=== PATIENT | female | born 1995 | race African-American/Black ===

== ENCOUNTER 2019-03-24 19:09 | Emergency (ER) | payer MEDICAID ==
[~2019-03-24] VITALS: Ht 149.9 cm; Wt 49.9 kg
[2019-03-24] MEDS ORDERED: ABILIFY10 MG ORAL (19:12)
[2019-03-24 19:20] VITALS: BP 125/80
--- NOTE | 2019-03-24 19:20 | NUR ---
ED Nurse Note: Patient was brought in to ER by RA from [facility], due to abdominal pain. Per patient she snorted meth today, and after that her abdominal pain was 7/10. AAO x4, patient has tachycardia HR is 115, other VSS at this time, skin is dry, intact, warm to touch. Patient denyes any pain right now. Will continue to monitor.
[2019-03-24] MEDS ORDERED: DiphenhydrAMINE 50mg/ml Inj IVP ONE (19:30)
[2019-03-24] MEDS ORDERED: Sodium Chloride 550 ML IV SCH (19:30)
[2019-03-24] MEDS ORDERED: Metoclopramide 10mg/2ml Inj IVP ONE (19:30)
--- NOTE | 2019-03-24 19:34 | Emergency Room Report ---
History of Present Illness General Chief Complaint: Abdominal Pain Source: Patient Present Illness HPI Patient presents with right-sided flank pain. She says it is her fault because she was doing methamphetamine today. At that time the pain began she felt that it was 8-9/10 right flank not radiating. Right now it's down to a 5 or 4/10. It's improving. She hasn't any fevers or chills. There's no cough, shortness of breath chest pain vomiting diarrhea. She's had pain like this in the past. Usually is not in her flank. She denies dysuria or hematuria. She's not sure when her last period was. The patient has cerebral palsy and is status post ventricular peritoneal shunt. She denies any headache at this time or increased weakness. Allergies: Coded Allergies: MORPHINE (Verified Allergy, Unknown, 03/24/19) Patient History Past Medical History: see triage record Past Surgical History: other - Ventriculoperitoneal shunt, post gastrostomy tube and removal Social History: Reports: smoking, drug use Social History Narrative [facility]hab [id number] Last Menstrual Period: 02/20/19 Now: No Reviewed Nursing Documentation: PMH: Agreed; PSxH: Agreed Nursing Documentation-PMH Past Medical History: No History, Except For Hx Asthma: Yes Review of Systems All Other Systems: negative except mentioned in HPI Physical Exam Vital Signs Date Time Temp Pulse Resp B/P (MAP) Pulse Ox O2 Delivery O2 Flow Rate FiO2 03/24/19 19:09 98.4 110 18 100 Room Air Sp02 EP Interpretation: reviewed, normal General Appearance: no apparent distress, alert, GCS 15, non-toxic, other - Short stature Head: normocephalic, atraumatic, 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 - 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 Eyes: bilateral eye PERRL, bilateral eye EOMI, bilateral eye conjunctivae pale ENT: moist mucus membranes Neck: full range of motion, supple Respiratory: lungs clear, normal breath sounds Cardiovascular #1: regular rate, rhythm Cardiovascular #2: 2+ radial (R) Gastrointestinal: normal inspection, normal bowel sounds, non tender, soft, no mass, non-distended, other - Surgical scars Genitourinary: no CVA tenderness - But reported pain right flank Musculoskeletal: back normal - Right flank pain, decreased range of motion - All extremities with atrophy Neurologic: alert, oriented x3, sensory intact, motor weakness - Lower extremities Psychiatric: mood/affect normal Skin: normal inspection, warm/dry Medical Decision Making Diagnostic Impression: Primary Impression: Flank pain Additional Impressions: Methamphetamine abuse Cerebral palsy Qualified Codes: G80.9 - Cerebral palsy, unspecified Status post ventriculo-peritoneal shunt placement ER Course Patient with cerebral palsy presents with right flank pain. Differential includes pyelonephritis, renal stone, dehydration, constipation, diverticulitis amongst others. Due to the position of the pain gallbladder disease is less likely. Patient will be evaluated with chest x-ray, abdominal film and labs. The patient will receive some IV hydration as she appears dehydrated and also Reglan, Benadryl and Pepcid. Patient admits to methamphetamine use and she denied discussed needing to go to methamphetamine anonymous meeting. Labs unremarkable. Patient refused x-rays. Patient states she feels better and wants to go out and smoke and go back to her rehab facility. I discussed the risk of missing serious abdominal or chest pathology. She understands this and still insists on signing out AGAINST MEDICAL ADVICE. Patient is improved. Laboratory Tests Test 03/24/19 19:30 White Blood Count 7.2 K/UL (4.8-10.8) Red Blood Count 4.76 M/UL (4.20-5.40) Hemoglobin 11.5 G/DL (12.0-16.0) L Hematocrit 36.3 % (37.0-47.0) L Mean Corpuscular Volume 76 FL (80-99) L Mean Corpuscular Hemoglobin 24.3 PG (27.0-31.0) L Mean Corpuscular Hemoglobin Concent 31.8 G/DL (32.0-36.0) L Red Cell Distribution Width 16.7 % (11.6-14.8) H Platelet Count 251 K/UL (150-450) Mean Platelet Volume 7.7 FL (6.5-10.1) Neutrophils (%) (Auto) 62.0 % (45.0-75.0) Lymphocytes (%) (Auto) 28.8 % (20.0-45.0) Monocytes (%) (Auto) 7.3 % (1.0-10.0) Eosinophils (%) (Auto) 0.7 % (0.0-3.0) Basophils (%) (Auto) 1.2 % (0.0-2.0) Prothrombin Time 10.7 SEC (9.30-11.50) Prothrombin Time INR 1.0 (0.9-1.1) PTT 24 SEC (23-33) Urine Color Pale yellow Urine Appearance Clear Urine pH 6 (4.5-8.0) Urine Specific [place] 1.015 (1.005-1.035) Urine Protein Negative (NEGATIVE) Urine Glucose (UA) Negative (NEGATIVE) Urine Ketones Negative (NEGATIVE) Urine Blood Negative (NEGATIVE) Urine Nitrite Negative (NEGATIVE) Urine Bilirubin Negative (NEGATIVE) Urine Urobilinogen Normal MG/DL (0.0-1.0) Urine Leukocyte Esterase 1+ (NEGATIVE) H Urine RBC 0-2 /HPF (0 - 2) Urine WBC 2-4 /HPF (0 - 2) Urine Squamous Epithelial Cells Moderate /LPF (NONE/OCC) H Urine Amorphous Sediment Few /LPF (NONE) H Urine Bacteria Few /HPF (NONE) Urine HCG, Qualitative Negative (NEGATIVE) Sodium Level 141 MMOL/L (136-145) Potassium Level 4.1 MMOL/L (3.5-5.1) Chloride Level 107 MMOL/L (98-107) Carbon Dioxide Level 24 MMOL/L (21-32) Anion Gap 10 mmol/L (5-15) Blood Urea Nitrogen 9 mg/dL (7-18) Creatinine 0.5 MG/DL (0.55-1.30) L Estimate Glomerular Filtration Rate > 60 mL/min (>60) Glucose Level 95 MG/DL (74-106) Calcium Level 9.3 MG/DL (8.5-10.1) Total Bilirubin 0.4 MG/DL (0.2-1.0) Aspartate Amino Transferase (AST) 15 U/L (15-37) Alanine Aminotransferase (ALT) 25 U/L (12-78) Alkaline Phosphatase 60 U/L (46-116) Total Protein 8.0 G/DL (6.4-8.2) Albumin 3.7 G/DL (3.4-5.0) Globulin 4.3 g/dL Albumin/Globulin Ratio 0.9 (1.0-2.7) L Lipase 125 U/L (73-393) EKG Diagnostic Results Rate: tachycardiac Rhythm: NSR ST Segments: no acute changes Rhythm Strip Diag. Results EP Interpretation: yes Rhythm: no PVC's, no ectopy, other - ST Last Vital Signs Date Time Temp Pulse Resp B/P (MAP) Pulse Ox O2 Delivery O2 Flow Rate FiO2 03/24/19 21:25 98.4 114 18 125/80 100 Room Air Status: improved Disposition: AGAINST MEDICAL ADVICE Condition: Improved Diego Ralph MD March 24, 2019 19:33
[2019-03-24 20:12] LABS: ANION GAP 10 mmol/L (5-15); BASOPHILS % (AUTO) 1.2 % (0.0-2.0); BLOOD UREA NITROGEN 9 mg/dL (7-18); CALCIUM 9.3 MG/DL (8.5-10.1); CARBON DIOXIDE 24 MMOL/L (21-32); CHLORIDE 107 MMOL/L (98-107); CREATININE 0.5 MG/DL (0.55-1.30); EOSINOPHILS % (AUTO) 0.7 % (0.0-3.0); HEMATOCRIT 36.3 % (37.0-47.0); HEMOGLOBIN 11.5 G/DL (12.0-16.0); LYMPHOCYTES % (AUTO) 28.8 % (20.0-45.0); MEAN CORPUSCULAR VOLUME 76 FL (80-99); MONOCYTES % (AUTO) 7.3 % (1.0-10.0); PLATELET COUNT 251 K/UL (150-450); POTASSIUM 4.1 MMOL/L (3.5-5.1); RED BLOOD COUNT 4.76 M/UL (4.20-5.40); RED CELL DISTRIBUTION WIDTH 16.7 % (11.6-14.8); SODIUM 141 MMOL/L (136-145); WHITE BLOOD COUNT 7.2 K/UL (4.8-10.8)
[2019-03-24 20:16] LABS: ALANINE AMINOTRANSFERASE 25 U/L (12-78); ALBUMIN 3.7 G/DL (3.4-5.0); ALBUMIN/GLOBULIN RATIO 0.9 (1.0-2.7); ALKALINE PHOSPHATASE 60 U/L (46-116); ASPARTATE AMINO TRANSFERASE 15 U/L (15-37); BILIRUBIN,TOTAL 0.4 MG/DL (0.2-1.0)
[2019-03-24 20:18] LABS: APPEARANCE,URINE CLEAR; BILIRUBIN, URINE NEGATIVE (NEGATIVE); COLOR,URINE PALE YELLOW; GLUCOSE, URINE (UA) NEGATIVE (NEGATIVE); KETONES,URINE NEGATIVE (NEGATIVE); LEUKOCYTE ESTERASE ,URINE 1+ (NEGATIVE); NITRITE,URINE NEGATIVE (NEGATIVE); PH,URINE 6 (4.5-8.0); PROTEIN,URINE NEGATIVE (NEGATIVE); UROBILINOGEN,URINE NORMAL MG/DL (0.0-1.0)
--- NOTE | 2019-03-24 20:39 | NUR ---
ED Nurse Note: Patient is not cooperative, keep teling "I want to go home, let me smoke." Patient signed AMA. [facility] for transportation ETA 2100.
--- NOTE | 2019-03-24 21:00 | NUR ---
AMA: SEE AMA FORM.
--- NOTE | 2019-03-24 21:03 | NUR ---
ED Nurse Note: Patient signed AMA, DC papers given by Dr. Ralph.
--- NOTE | 2019-03-24 21:22 | NUR ---
ED Nurse Note: Report given to Jenn, coordinator at [facility].
[2019-03-24 21:25] VITALS: BP 125/80
--- NOTE | 2019-03-24 21:26 | NUR ---
ED Nurse Note: Patient was transfered back to [facility]. AAO x4, VSS at this time. All belongings were given to the patient.
== END 2019-03-24 21:28 | disposition left against medical advice (07) ==
LOC: EDBD 19:09 → EMR 19:35
DX: R10.9 Unspecified abdominal pain (principal); F15.10 Other stimulant abuse, uncomplicated; G80.9 Cerebral palsy, unspecified; Z88.6 Allergy status to analgesic agent; F17.200 Nicotine dependence, unspecified, uncomplicated; Z98.2 Presence of cerebrospinal fluid drainage device; R00.0 Tachycardia, unspecified
CPT/HCPCS: 36415; 80053; 81003; 81025; 83690; 85025; 85610; 85730; 93005; 96361; 96374; 96375; 99284; J1200; J2765; S0028

== ENCOUNTER 2019-07-16 13:58 | Emergency (ER) | payer MEDICAID ==
[~2019-07-16] VITALS: Ht 162.6 cm; Wt 54.4 kg
[~2019-07-16 13:58] MED LIST: ABILIFY10 MG ORAL
[2019-07-16] MEDS ORDERED: DEPAKOTE ER250 MG ORAL (14:02)
[2019-07-16 14:09] VITALS: BP 118/70
--- NOTE | 2019-07-16 14:09 | NUR ---
ED Nurse Note: Pt brought in by EMS from [facility] due to headache x 2 days. Denies fall or head injury. No vomiting. Pt has cerebral palsy and has a GREEN WARE CASTER shunt. AAO x4, non ambulatory with non labored breathing. Noted contracted left arm.
--- NOTE | 2019-07-16 14:32 | NUR ---
ED Nurse Note: Pt taken to CT.
--- NOTE | 2019-07-16 14:32 | Emergency Room Report ---
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 Patient denies any fall or injury. Reports that the pain is on the posterior and lateral right parietal lobe. Old scarring of the shunt placement is observed at the site of her pain. Patient denies dizziness, nausea vomiting, nosebleed, vertigo, motor and sensory deficits. Denies chest pain, shortness of breath, palpitation, abdominal pain. Has not taken medication for symptom relief. Patient reports that she gets her menstruations regularly and she is due to get one soon. Denies all other associated symptoms. Allergies: Coded Allergies: MORPHINE (Verified Allergy, Unknown, 03/24/19) PENICILLINS (Verified Allergy, Unknown, 07/16/19) Patient History Past Medical History: see triage record Past Surgical History: unable to obtain Pertinent Family History: none Now: No Immunizations: UTD Reviewed Nursing Documentation: PMH: Agreed; PSxH: Agreed Nursing Documentation-PMH Past Medical History: No History, Except For Hx Asthma: Yes Review of Systems All Other Systems: negative except mentioned in HPI Physical Exam Vital Signs Date Time Temp Pulse Resp B/P (MAP) Pulse Ox O2 Delivery O2 Flow Rate FiO2 07/16/19 13:59 97.9 78 14 100/66 (77) 96 Room Air Sp02 EP Interpretation: reviewed, normal General Appearance: no apparent distress, alert, GCS 15, non-toxic Head: normocephalic, atraumatic, other - Old scarring of shunt placement noted in the right parietal lobe Eyes: bilateral eye normal inspection, bilateral eye PERRL ENT: hearing grossly normal, normal pharynx, no angioedema, normal voice Neck: full range of motion, supple, supple/symm/no masses Respiratory: chest non-tender, lungs clear, normal breath sounds, no rhonchi, no wheezing, speaking full sentences Cardiovascular #1: regular rate, rhythm, no edema, no murmur, normal capillary refill Cardiovascular #2: 2+ carotid (R), 2+ carotid (L) Gastrointestinal: normal bowel sounds, non tender, soft, non-distended, no guarding, no rebound Genitourinary: no CVA tenderness Musculoskeletal: back normal, digits/nails normal, non-tender Neurologic: alert, oriented x3, responsive, motor strength/tone normal, sensory intact, speech normal Psychiatric: judgement/insight normal, memory normal, mood/affect normal, no suicidal/homicidal ideation Skin: no rash Lymphatic: no adenopathy Medical Decision Making PA Attestation All my diagnosis and treatment plans were reviewed ad discussed with my supervising physician Dr. 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 Patient denies any fall or injury. Reports that the pain is on the posterior and lateral right parietal lobe. Old scarring of the shunt placement is observed at the site of her pain. Patient denies dizziness, nausea vomiting, nosebleed, vertigo, motor and sensory deficits. Denies chest pain, shortness of breath, palpitation, abdominal pain. Has not taken medication for symptom relief. Patient reports that she gets her menstruations regularly and she is due to get one soon. Denies all other associated symptoms. Ddx considered but are not limited to: Headache secondary to shunt malfunction, cerebral hematoma, tension headache, migraine headache Vital signs: are WNL, pt. is afebrile H&PE are most consistent with: headache not related to shunt malfunction and no hydrocephalus ORDERS: Head CT scan noncontrast, shuntogram, CBC, CMP, valproic acid level, UA , tox screen, urine test, Tylenol ER intervention: Tylenol DISCHARGE: At this time pt. is stable for d/c to home. Will provide printed patient care instructions, and any necessary prescriptions. Care plan and follow up instructions have been discussed with the patient prior to discharge. Take medication as directed follow-up with your primary care provider and neurologist CT/MRI/US Diagnostic Results CT/MRI/US Diagnostic Results : Imaging Test Ordered: Head CT no contrast Impression Within normal limits no signs of acute injury, no hydrocephalus Last Vital Signs Date Time Temp Pulse Resp B/P (MAP) Pulse Ox O2 Delivery O2 Flow Rate FiO2 07/16/19 13:59 97.9 78 14 100/66 (77) 96 Room Air Disposition: HOME, SELF-CARE Condition: Stable Referrals: [facility]ERR[facility] (PCP) Patient Instructions: Tension Headache Additional Instructions: Take medication as directed follow-up with your primary care provider make an appointment with your neurologist Reggie Abbott Jul 16, 2019 14:32
--- NOTE | 2019-07-16 14:45 | NUR ---
ED Nurse Note: Pt came back from CT. VSS.
[2019-07-16 14:46] LABS: BASOPHILS % (AUTO) 0.8 % (0.0-2.0); EOSINOPHILS % (AUTO) 1.9 % (0.0-3.0); HEMATOCRIT 37.9 % (37.0-47.0); HEMOGLOBIN 12.1 G/DL (12.0-16.0); LYMPHOCYTES % (AUTO) 33.6 % (20.0-45.0); MEAN CORPUSCULAR VOLUME 80 FL (80-99); MONOCYTES % (AUTO) 8.3 % (1.0-10.0); NEUTROPHILS % (AUTO) 55.4 % (45.0-75.0); PLATELET COUNT 213 K/UL (150-450); RED BLOOD COUNT 4.74 M/UL (4.20-5.40); RED CELL DISTRIBUTION WIDTH 16.9 % (11.6-14.8); WHITE BLOOD COUNT 8.7 K/UL (4.8-10.8)
--- NOTE | 2019-07-16 15:00 | NUR ---
ED Nurse Note: Urine specimen sent.
--- NOTE | 2019-07-16 15:01 | Diagnostic Imaging Report ---
Indications: 10 out of 10 headache Technique: Spiral acquisitions obtained through the brain. Angled axial and coronal 5 x 5 mm slices were reconstructed. Total dose length product 1312.75 mGycm. CTDI vol(s) 70.38 mGy. Dose reduction achieved using automated exposure control Comparison: None. Findings: There is a right transfrontal ventriculoperitoneal shunt, tubing traversing the body of the right lateral ventricle, probably crossing the septum pellucidum and tip just barely within the medial aspect of the left lateral ventricle. 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 The ventricles are not enlarged. Normal extra-axial CSF spaces. Normal galicia-white differentiation. No acute intracranial hemorrhage or edema. No mass effect nor midline shift. Visualized orbits and sinuses are unremarkable. The mastoids are not pneumatized except for the mastoid antra. The calvarium is intact. Impression: No acute intracranial bleed or mass effect Right transfemoral ventriculoperitoneal shunt. No evidence of hydrocephalus. 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
[2019-07-16 15:02] LABS: ANION GAP 11 mmol/L (5-15); BLOOD UREA NITROGEN 10 mg/dL (7-18); CALCIUM 8.7 MG/DL (8.5-10.1); CARBON DIOXIDE 22 MMOL/L (21-32); CHLORIDE 108 MMOL/L (98-107); CREATININE 0.4 MG/DL (0.55-1.30); POTASSIUM 4.1 MMOL/L (3.5-5.1); SODIUM 141 MMOL/L (136-145)
[2019-07-16 15:06] LABS: ALANINE AMINOTRANSFERASE 19 U/L (12-78); ALBUMIN 3.3 G/DL (3.4-5.0); ALBUMIN/GLOBULIN RATIO 0.9 (1.0-2.7); ALKALINE PHOSPHATASE 49 U/L (46-116); ASPARTATE AMINO TRANSFERASE 12 U/L (15-37); BILIRUBIN,TOTAL 0.4 MG/DL (0.2-1.0)
[2019-07-16 15:18] LABS: APPEARANCE,URINE CLEAR; BILIRUBIN, URINE NEGATIVE (NEGATIVE); COLOR,URINE PALE YELLOW; GLUCOSE, URINE (UA) NEGATIVE (NEGATIVE); KETONES,URINE NEGATIVE (NEGATIVE); LEUKOCYTE ESTERASE ,URINE NEGATIVE (NEGATIVE); NITRITE,URINE NEGATIVE (NEGATIVE); PH,URINE 7 (4.5-8.0); PROTEIN,URINE NEGATIVE (NEGATIVE); UROBILINOGEN,URINE NORMAL MG/DL (0.0-1.0)
--- NOTE | 2019-07-16 15:45 | NUR ---
ED Nurse Note: [place] Called CT and they are unable to do shunto gram at this time. Reggie hartman.
[2019-07-16] MEDS ORDERED: DiphenhydrAMINE 50mg/ml Inj IM ONE (16:00)
[2019-07-16] MEDS ORDERED: Haloperidol 5mg/ml Inj IM ONE (16:00)
[2019-07-16] MEDS ORDERED: IBUPROFEN600 MG ORAL (16:02)
[2019-07-16] MEDS ORDERED: TYLENOL EXTRA500 MG ORAL (16:02)
[2019-07-16 16:10] VITALS: BP 122/68
--- NOTE | 2019-07-16 16:14 | NUR ---
CALLED [facility] AND SPOKE TO LATONIA ALANIS BE SENDING PATIENT BACK .[facility] called [id number]
--- NOTE | 2019-07-16 17:38 | NUR ---
REPORT GIVEN TO THE EMT PATIENT IS TRANSFERD VIA S [facility]BUL[facility] TO [facility]
[2019-07-16 17:45] VITALS: BP 118/70
--- NOTE | 2019-07-16 17:45 | NUR ---
ER DISCHARGE NOTE: Patient is cleared to be discharged per ERMD, pt is aox4, on room air, with stable vital signs. pt was given dc and prescription instructions, pt was able to verbalize understanding, pt id band and iv site removed without complications. pt transferred via gurney back to half-way. pt took all belongings.
== END 2019-07-16 17:45 | disposition home or self-care (01) ==
LOC: EDBD 13:58 → EMR 14:13
DX: R51 Headache (principal); J45.909 Unspecified asthma, uncomplicated; Z88.0 Allergy status to penicillin; Z88.6 Allergy status to analgesic agent
CPT/HCPCS: 36415; 70450; 80053; 80164; 80307; 81001; 81025; 85025; 87086; 96372; 99284